=== PATIENT | male | born 1955 | race Caucasian/White ===

== ENCOUNTER 2025-08-04 15:24 | Emergency (ER) | payer MEDICARE, MEDICAID ==
[~2025-08-04] VITALS: Ht 175.3 cm; Wt 65.9 kg
[2025-08-04 15:31] VITALS: TEMP 98.2
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
--- NOTE | 2025-08-04 17:26 | RADIOLOGY REPORT ---
CT CT HEAD INDICATION: trauma EXAM DATE: 08/04/2025 04:36 PM COMPARISON: None TECHNIQUE: CT of the head without intravenous contrast. RADIATION DOSE: CTDIvol: 63 mGy, DLP: 1191 mGy*cm FINDINGS: Subtle hyperdensity within the right basal ganglia measuring 6 mm. No extra-axial fluid. [id number] global cerebral volume loss. Ventricles midline and normal in size. Cisterns patent. Mild periventricular and subcortical white matter chronic microvascular ischemic changes. The mastoids demonstrate no significant effusion. Right maxillary sinus mucosal retention cyst/cyst/ polyp measuring 2 cm.. Imaged portion of the orbits are unremarkable. IMPRESSION: Subtle hyperdensity within the right basal ganglia measuring 6 mm could represent small region of intraparenchymal hemorrhage versus asymmetrical mineralization. Recommend follow-up CT head in 2-3 hours and MRI brain to further characterize. Mild chronic microvascular ischemic changes. [id number] global cerebral volume loss.
[2025-08-04] MEDS: acetaminophen 1,000mg/100ml IV 100 ML IV ONE (17:45)
[2025-08-04 18:02] LABS: CREATININE 0.80 MG/DL (0.60-1.10); TOTAL CARBON DIOXIDE 24.3 MMOL/L (24-32); eCRCL 82 ML/MIN; eGFR > 90 ML/MIN
[2025-08-04 18:20] LABS: MEAN PLATELET VOLUME 8.7 FL (7.4-10.4); RED CELL DISTRIBUTION WIDTH 15.8 % (11.5-14.5)
[2025-08-04 19:48] VITALS: BP 130/81; PULSE 83; RESP 15; O2SAT 97
== END 2025-08-04 20:38 | disposition home or self-care (01) ==
LOC: ER 15:25
DX: Z00.00 Encounter for general adult medical examination without abnormal findings (principal); M54.2 Cervicalgia; I48.91 Unspecified atrial fibrillation; I10 Essential (primary) hypertension; F41.9 Anxiety disorder, unspecified; Z59.00 Homelessness unspecified
CPT/HCPCS: 36415; 70450; 80048; 85025; 96365; 99285; J0131